=== PATIENT | female | born 1945 | race Two or more races ===

== ENCOUNTER 2024-04-19 22:05 | Emergency (ER) | payer OTHER ==
[~2024-04-19] VITALS: Ht 149.9 cm; Wt 72.6 kg
[~2024-04-19 22:05] MED LIST: ATACAND16 MG; CELEXA10 MG; SYNTHROID50 MCG; TENORMIN25 MG
[2024-04-19] MEDS ORDERED: KAPSPARGO SPRIN25 MG PO (22:44)
[2024-04-19] MEDS ORDERED: COZAAR25 MG PO (22:44)
[2024-04-19 23:10] LABS: HEMATOCRIT 40.9 % (36.0-45.00); MEAN CELL VOLUME 89.5 fL (80.00-100.00); MEAN CORPUSCULAR HEMOGLOBIN 30.6 pg (27.00-32.0); MEAN CORPUSCULAR HGB CONC 34.2 g/dl (32.0-36.0); PLATELET COUNT 260 K/uL (150-450); RED BLOOD COUNT 4.56 M/uL (4.00-6.00)
[2024-04-19] MEDS ORDERED: 0.9 % SODIUM CHLORIDE 1,000 ML IV ONE (23:45)
[2024-04-19 23:56] LABS: ALBUMIN 4.1 gm/dL (3.4-5.0); BILIRUBIN TOTAL 0.47 mg/dL (0.3-1.2); CALCIUM 9.1 mg/dL (8.5-10.1); CREATININE SERUM 1.05 mg/dL (0.55-1.02); GFR 50.43; GLOBULINA 4.5 G/DL (2.4-3.5); POTASSIUM 3.88 mEq/L (3.5-5.1); TOTAL PROTEIN 8.6 gm/dL (6.4-8.2)
[2024-04-20] MEDS ORDERED: DEXAMETHASONE SODIUM PHOSPHATE 4 MG/ML VIAL IM STA (02:12)
[2024-04-20] MEDS ORDERED: ACETAMINOPHEN WITH CODEINE 1 UDTAB TABLET PO STA (02:12)
[2024-04-20] MEDS ORDERED: DEXAMETHASONE SODIUM PHOSPHATE 4 MG/ML VIAL ONE (02:19)
== END 2024-04-20 05:10 | disposition home or self-care (01) ==
LOC: ER 22:05
PROVIDERS: General Practice
DX: M94.0 Chondrocostal junction syndrome [Tietze] (principal); R07.9 Chest pain, unspecified; Z88.6 Allergy status to analgesic agent; Z88.0 Allergy status to penicillin; I10 Essential (primary) hypertension
CPT/HCPCS: 36415; 71045; 96365; 96366; 96372; 99283; J1100; J7030